=== PATIENT | female | born 1950 | race Caucasian/White ===

== ENCOUNTER 2016-08-02 08:32 | Inpatient (IN) | payer BC ==
[~2016-08-02] VITALS: Ht 160 cm; Wt 63.6 kg
[2016-08-02] MEDS ORDERED: SOD CHLORIDE 0.9% 1,000 ML IV STA (08:43)
[2016-08-02] MEDS ORDERED: ASPIRIN 325 MG TAB PO ONE (09:00)
[2016-08-02 09:05] LABS: ADD SCAN DIFF NO
--- NOTE | 2016-08-02 09:06 | RADRPT ---
PROCEDURE: XR Chest. CLINICAL INDICATION: Abdominal pain. TECHNIQUE: Single frontal portable chest was obtained. COMPARISON: None. FINDINGS: Cardiomediastinal silhouette appears normal There are atherosclerotic calcifications in the thoracic aorta. Pulmonary vasculature appears normal. Lung lovelace appear clear. There is a moderate sized retrocardiac hiatal hernia. Costophrenic angles are well defined. The osseous elements appear intact. IMPRESSION: 1. Atherosclerotic calcifications in the thoracic aorta. 2. Moderate retrocardiac hiatal hernia. 3. No confluent airspace process identified. RPTAT: [facility] Physician Oscar Date Time Electronically viewed and signed by Physician Oscar on 08/02/2016 09:06 /
[2016-08-02 09:08] LABS: ABNORMAL IP MESSAGE 1; HEMATOCRIT 22.2 % (37.0-47.0); MEAN CORPUSCULAR HEMOGLOBIN 16.9 pg (29.0-33.0); MEAN CORPUSCULAR HGB CONC 26.1 g/dl (32.0-37.0); MEAN CORPUSCULAR VOLUME 64.7 fl (82.0-101.0); MEAN PLATELET VOLUME 10.5 fl (7.4-10.4); PLATELET COUNT 446 10^3/UL (140-415); RED BLOOD COUNT 3.43 10^6/ul (4.20-5.40); RED CELL DISTRIBUTION WIDTH 20.7 % (11.5-14.5); WHITE BLOOD COUNT 3.3 10^3/ul (4.8-10.8)
[2016-08-02 09:11] LABS: HEMOGLOBIN 5.8 g/dl (12.0-16.0)
[2016-08-02 09:19] LABS: ALBUMIN 3.8 g/dl (3.3-4.9)
[2016-08-02 09:20] LABS: CHLORIDE 104 mmol/L (97-110); SODIUM 142 mmol/L (135-144)
[2016-08-02 09:22] LABS: ALBUMIN/GLOBULIN RATIO 1.31; ANION GAP 14 (8-16); ASPARTATE AMINO TRANSFERASE 26 IU/L (15-46); BILIRUBIN,INDIRECT 0.5 mg/dl (0-1.1); BILIRUBIN,TOTAL 0.5 mg/dl (0.2-1.3); CARBON DIOXIDE 28 mmol/L (21-31); CREATININE 0.63 mg/dl (0.44-1.00); TOTAL PROTEIN 6.7 g/dl (6.1-8.1)
[2016-08-02 09:23] LABS: ALANINE AMINOTRANSFERASE 28 IU/L (13-69); ALKALINE PHOSPHATASE 55 IU/L (42-121); BLOOD UREA NITROGEN 16 mg/dl (7-20); CALCIUM 8.9 mg/dl (8.4-10.2); GLUCOSE 86 mg/dl (70-220)
[2016-08-02 09:31] LABS: B-TYPE NATRIURETIC PEPTIDE 250 PG/ML (0-125)
[2016-08-02 09:34] LABS: TROPONIN-I < 0.012 ng/ml (0.00-0.12)
[2016-08-02 09:48] LABS: ADD UMIC NO; URINE BILIRUBIN (Dip) NEGATIVE (NEGATIVE); URINE BLOOD (Dip) NEGATIVE (NEGATIVE); URINE COLOR LT. YELLOW (YELLOW); URINE GLUCOSE (Dip) NEGATIVE (NEGATIVE); URINE KETONES (Dip) NEGATIVE (NEGATIVE); URINE LEUKOCYTE ESTERASE (Dip) NEGATIVE (NEGATIVE); URINE NITRITE (Dip) NEGATIVE (NEGATIVE); URINE TOTAL PROTEIN (Dip) NEGATIVE (NEGATIVE); URINE UROBILINOGEN (Dip) 0.2 E.U./dL (0.1-1.0)
[2016-08-02] MEDS ORDERED: OMEP10CA4 PO (09:50)
[2016-08-02] MEDS ORDERED: RANI-347 PO (09:51)
--- NOTE | 2016-08-02 10:15 | ERA ---
ER Documentation Chief Complaint Date/Time DATE: 08/02/16 TIME: 10:09 Chief Complaint SOB WITH EXERTION GETTING WORSE THE PAST FEW DAYS INTERMITENT CP HPI 66-year-old woman presents with 3-4 weeks of dyspnea on exertion and generalized weakness. She saw her stone driller helper today who referred her to this emergency department for evaluation and possible admission. Her stone driller helper stated her recent cardiac stress test was equivocal. Patient does have a history of gastritis and uses proton pump inhibitor therapy orally daily. She also uses aspirin 81 mg daily. Patient denies melena or blood per rectum, no epigastric abdominal pain, no fevers or chills, no vomiting or diarrhea. ROS All systems reviewed and are negative except as per history of present illness. Medications Home Meds Reported Medications Ranitidine Hcl* (Ranitidine Hcl*) 75 Mg Tablet, 75 MG PO QHS, #60 TAB 08/02/16 Omeprazole* (Omeprazole*) 10 Mg Capsule.dr, 10 MG PO DAILY, #30 CAP 08/02/16 Allergies Allergies: Coded Allergies: No Known Allergy (Unverified , 08/02/16) PMhx/Soc Gastritis Medical and Surgical Hx: pt denies Surgical Hx History of Surgery: No Anesthesia Reaction: No Hx Neurological Disorder: No Hx Respiratory Disorders: No Hx Cardiac Disorders: No Hx Alcohol Use: No Hx Substance Use: No Hx Tobacco Use: No Smoking Status: Never smoker FmHx Family History: No diabetes Physical Exam Vitals Vital Signs Date Time Temp Pulse Resp B/P Pulse Ox O2 Delivery O2 Flow Rate FiO2 08/02/16 09:05 59 18 147/71 100 Room Air 08/02/16 08:36 98.4 64 20 150/85 100 Physical Exam GENERAL: Well-developed, well-nourished, well-hydrated, in no apparent distress , looks nontoxic in appearance HEENT: Moist mucous membranes, pale conjunctiva, no cervical spine tenderness or step-off deformities, no goiter, no jaundice or icterus, extraocular movements intact without pain. No submandibular induration, and no pharyngeal erythema NEURO: Alert and oriented 3, cranial nerves II through XII intact bilaterally, pupils equal round reactive to light, no focal deficits or facial asymmetry, sensation intact distally Strength 5/5 in upper and lower extremities bilaterally CARDIAC: Bradycardic and regular no murmurs rubs or gallops LUNGS: Clear bilaterally no wheezing crackles or stridor ABDOMEN: Soft nontender, no guarding, no rigidity, no rebound, no psoas sign no obturator sign. Normoactive bowel sounds SKIN: Warm and dry to touch, no abrasions, contusions, or hematomas, no lacerations, no ecchymosis, no target lesions, and without ulcers EXTREMITIES: No clubbing cyanosis or edema, calves are bilaterally symmetrical, no Homans sign, no popliteal cord sign. Distal pulses equal and bilateral PSYCH: Normal affect without agitation or irritability Result Diagram: 08/02/16 0808/02/1655 Results 24 hrs Laboratory Tests Test 08/02/16 08:55 08/02/16 09:11 Alanine Aminotransferase (ALT/SGPT) 28IU/L Albumin 3.8g/dl Albumin/Globulin Ratio 1.31 Alkaline Phosphatase 55IU/L Anion Gap 14 Aspartate Amino Transf (AST/SGOT) 26IU/L B-Type Natriuretic Peptide 250PG/ML Blood Urea Nitrogen 16mg/dl Calcium Level 8.9mg/dl Carbon Dioxide Level 28mmol/L Chloride Level 104mmol/L Creatinine 0.63mg/dl Direct Bilirubin 0.00mg/dl Globulin 2.90g/dl Glucose Level 86mg/dl Hematocrit 22.2% Hemoglobin 5.8g/dl Indirect Bilirubin 0.5mg/dl Lipase 80U/L Mean Corpuscular Hemoglobin 16.9pg Mean Corpuscular Hemoglobin Concent 26.1g/dl Mean Corpuscular Volume 64.7fl Mean Platelet Volume 10.5fl Platelet Count 91055^3/UL Potassium Level 4.0mmol/L Red Blood Count 3.4310^6/ul Red Cell Distribution Width 20.7% Sodium Level 142mmol/L Total Bilirubin 0.5mg/dl Total Protein 6.7g/dl Troponin I < 0.012ng/ml White Blood Count 3.310^3/ul Urine Bilirubin NEGATIVE Urine Clarity CLEAR Urine Color LT. YELLOW Urine Glucose NEGATIVE% Urine Hemoglobin NEGATIVE Urine Ketones NEGATIVE Urine Leukocyte Esterase NEGATIVE Urine Nitrite NEGATIVE Urine Specific [place] <=1.005 Urine Total Protein NEGATIVE Urine Urobilinogen 0.2 E.U./dL Urine pH 6.5 Current Medications Medications (Trade) Dose Ordered Sig/[place]ingo Route PRN Reason Start Time Stop Time Status Last Admin Dose Admin Aspirin 325 mg 325 mg ONCE ONCE PO 08/02/16 09:00 08/02/16 09:01 DC 08/02/16 09:10 Sodium Chloride (NS) 1,000 ml @ 1,000 mls/hr Q1H STAT IV 08/02/16 08:43 08/02/16 09:42 DC 08/02/16 09:10 Procedures/MDM IV line was established patient was placed on manager code rhythm strip revealed a sinus rhythm at about 60 bpm with upright P and T waves. Patient was afebrile. Patient was given aspirin 324 mg for cardioprotective measures. EKG performed, read by me revealed a sinus bradycardia 53 bpm, normal axis, narrow QRS complex, no concerning ST elevations or depressions noted. Chest X-ray 1V Interpreted by me: Soft Tissue: No acute abnormalities Bones: No acute abnormalities Mediastinum/Cardiac Silhouette/Lungs: No acute abnormalities CBC revealed anemia with a hemoglobin of 5.8, electrolytes were unremarkable, liver function tests are normal, troponin was negative. I spoke to the patient at the bedside regarding her presentation and symptomatology, her symptoms are most likely attributed to severe anemia and indication is for IV PRBC transfusion. We spoke about the risks and benefits and after thinking about it the patient agreed. I obtain both verbal and written consent for IV transfusion. I ordered transfusion 2 units PRBCs IV over 4 hours. Critical Care: Time: 32 minutes, this was time separate from other procedures. Treatments/Evaluations: Close monitoring and treatment of unstable vital signs, cardiorespiratory, and neurologic status, while maintaining tight balance of fluid, respiratory, and cardiac interventions. Urine analysis was negative for infection. Patient will be admitted to Dr. Cho who saw the patient at the bedside. Departure Diagnosis: Primary Impression: Symptomatic anemia Additional Impression: Gastritis and gastroduodenitis with hemorrhage Condition: JUAN M Strickland MD Aug 02, 2016 10:14
[2016-08-02 10:31] VITALS: TEMP 98.3
[2016-08-02 11:00] VITALS: BP 138/71; PULSE 53; RESP 18; Ht 160 cm; Wt 63.6 kg
[2016-08-02 11:11] LABS: EOSINOPHILS # 0.3 10^3/ul (0.0-0.5); LYMPHOCYTES # 1.3 10^3/ul (0.8-2.9); MONOCYTE # 0.1 10^3/ul (0.3-0.9); NEUTROPHIL # 1.6 10^3/ul (1.6-7.5); OVALOCYTES 1+
[2016-08-02 11:23] LABS: ALBUMIN 3.9 g/dl (3.3-4.9)
[2016-08-02 11:25] LABS: IRON 12 ug/dl (35-150)
[2016-08-02 11:26] LABS: BILIRUBIN,INDIRECT 0.4 mg/dl (0-1.1); BILIRUBIN,TOTAL 0.4 mg/dl (0.2-1.3); TOTAL PROTEIN 6.5 g/dl (6.1-8.1)
[2016-08-02] MEDS ORDERED: ACETAMINOPHEN 325 MG TAB PO PRN (11:30)
[2016-08-02] MEDS ORDERED: ONDANSETRON 4 MG INJ IV PRN (11:30)
[2016-08-02 11:34] LABS: TOTAL IRON BINDING CAPACITY 487 ug/dl (241-421)
[2016-08-02] MEDS: PANTOPRAZOLE (EC) 40 MG TAB PO SCH ×2 (12:00→17:18)
--- NOTE | 2016-08-02 12:01 | HP ---
DATE OF ADMISSION: 08/02/2016 CHIEF COMPLAINT: Shortness of breath. HISTORY OF PRESENT ILLNESS: This is a 66-year-old female with a past medical history of erosive gas tritis, history of hiatal hernia, who presents to [facility] with complaints of sh ortness of breath ongoing for the last 3 to 4 weeks. The patient's symptoms began approximately 3 t o 4 weeks ago when she noted worsening dyspnea on exertion. The patient also had some episodes of i ntermittent chest pain. As a result, her product safety expert brought her to [facility] f or evaluation. Upon arrival, the patient had laboratory data drawn, which showed hemoglobin of 5.8. The patient in the emergency room was given 1 liter of fluid and aspirin 325 x1. The patient was typed and crossed 2 units of PRBC for transfusion. In terms of the patient's GI history she stated that she was diagnosed with erosive esophagitis appr oximately 10 years ago. The patient has been on PPI. She denies any recent episodes of hemoptysis, hematemesis, any hematochezia. She denies any melenic stools. Patient has not had any recent repea t EGD or colonoscopy in the last 10 years. Otherwise, the patient denies any rashes, any dysuria or any frothy urine. PAST MEDICAL HISTORY: History of erosive esophagitis. PAST SURGICAL HISTORY: EGD, colonoscopy in the past. ALLERGIES: NO KNOWN DRUG ALLERGIES. FAMILY HISTORY: Noncontributory. SOCIAL HISTORY: Does not drink, smoke or do drugs. MEDICATIONS: Patient medications have been reviewed. REVIEW OF SYSTEMS: A 14-point review of systems was conducted. Pertinent positives stated in HPI, otherwise negative. PHYSICAL EXAMINATION: VITAL SIGNS: Blood pressure is 153/71, respiration 17, pulse 59, temperature 98.3. HEENT: Head is normocephalic. NECK: Supple. HEART: Regular rate. LUNGS: Show diminished breath sounds at the base. ABDOMEN: Soft, nontender to palpation without rebound or guarding. EXTREMITIES: Negative for clubbing, cyanosis, no edema. DERMATOLOGIC: No rashes. MUSCULOSKELETAL: No joint effusions. NEUROLOGIC: No focal deficits. LABORATORY DATA: Shows white count 3.3, hemoglobin 5.8, hematocrit 22.2, MCV 64.7, platelet count 4 46. BMP within normal limits. BNP 250. Urinalysis is bland. Chest x-ray shows a moderate retroca rdiac hiatal hernia, no airspace disease noted. ASSESSMENT AND PLAN: 1. Severe anemia. Underlying etiology is unclear. Differential is broad including peptic ulcer di sease versus hiatal hernia versus possible lower gastrointestinal bleed versus other. Plan at this point is to type and cross 2 units of PRBC. We will check iron panel, stool for occult blood. A GI consultation has been placed with Dr. Sorensen for evaluation for possible EGD, colonoscopy. We jeff l continue to monitor H and H levels closely. The patient will also be started on Protonix 40 mg p.o . daily. 2. Shortness of breath. Etiology is like secondary to severe anemia. Low suspicion for any acute cardiac issues. We will transfuse 2 units of PRBC and monitor. 3. Mild leukopenia, etiology is unclear. We will continue to monitor and may consider hematologic evaluation. 4. Thrombocytosis, etiology reactive, likely secondary to underlying anemia. Continue to monitor. 5. Gastrointestinal and deep venous thrombosis prophylaxis. Continue proton pump inhibitor and seq uential leg squeezers. 6. Hypertension, mild. We will continue to monitor. Defer any blood pressure medications at this time. Please note I spent over 25 minutes of face to face time with the patient, discussing code status. The patient is FULL CODE. Dictated By: DIMPLE MATTHEW/PAUL Conf#: [id number] DID#: [id number]
[2016-08-02] MEDS ORDERED: BISACODYL (EC) 5 MG TAB PO ONE ×3 (17:00→22:00)
--- NOTE | 2016-08-02 17:19 | CONS ---
DATE OF ADMISSION: 08/02/2016 DATE OF CONSULTATION: 08/02/2016 TYPE OF CONSULTATION: Gastroenterology. REFERRING PHYSICIAN: DIMPLE CHO DO. REASON FOR CONSULTATION: Severe microcytic hypochromic anemia, symptomatic. Dear Dr. Cho: Thank you for asking me to evaluate your patient who is a pleasant 66-year-old female with a history of erosive esophagitis, admitted to the hospital for symptomatic anemia. The patient was experienc ing shortness of breath for the last 3 to 4 weeks and this was only upon exertion. She denies any n ausea, vomiting, no abdominal pain, no GI bleeding. Patient had a colonoscopy done more than 10 yea rs ago. Two polyps were removed. She also had EGD done and she was diagnosed to have erosive esoph agitis. She denies of any chest pain now. She feels comfortable after having had a blood transfusi on. 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 The patient is in a menopausal state. PAST MEDICAL HISTORY: Esophagitis. ALLERGIES: NO KNOWN DRUG ALLERGIES. FAMILY HISTORY: Noncontributory. SOCIAL HISTORY: Does not smoke or drink or take drugs. The patient is a teacher by profession. MEDICATIONS: She has been taking baby aspirin for the last 2 to 3 weeks. REVIEW OF SYSTEMS: Otherwise negative: Alert, awake, not in distress. VITAL SIGNS: Stable. HEENT: Unremarkable. NECK: Supple, no thyromegaly, no lymphadenopathy. CARDIOVASCULAR: No murmur, gallop or click. ABDOMEN: Benign. EXTREMITIES: No edema. CENTRAL NERVOUS SYSTEM: Grossly within normal limits. SKIN: Normal. LABORATORY DATA: WBC is 3.3, hematocrit is 22, microcytic hypochromic picture. The MCV is 64 and M CHC is low. Platelet count was 446, most probably secondary to iron deficiency anemia. Liver funct ions were normal. Troponin was within normal limits. IMPRESSION: 1. Severe iron deficiency anemia secondary to gastrointestinal blood loss. 2. Mild hypertension. 3. Symptomatic anemia. 4. Shortness of breath which was secondary to anemia. 5. Personal history of colon polyp removed more than 10 years ago. 6. History of erosive esophagitis and hiatal hernia. PLAN: At this point is to prepare the patient for esophagogastroduodenoscopy and colonoscopy. Pena sfuse patient on an as need basis. Continue proton pump inhibitor and we will monitor hemoglobin an d hematocrit closely. Dictated By: JAROD SANCHEZ/PAUL Conf#: [id number] DID#: [id number] CC: DIMPLE CHO DO;*EndCC*
[2016-08-02] MEDS ORDERED: PEG/ELECTROLYTES 4L BTL PO ONE ×2 (18:00→22:00)
[2016-08-02 20:06] VITALS: BP 142/66; RESP 16
[2016-08-03] VITALS (9 sets, daily range): BP systolic 90–140; BP diastolic 47–81; PULSE 12–69; RESP 13–42
[2016-08-03] MEDS: PANTOPRAZOLE (EC) 40 MG TAB PO SCH ×2 (05:42→17:34)
[2016-08-03 07:54] LABS: ADD SCAN DIFF NO
[2016-08-03 07:57] LABS: ABNORMAL IP MESSAGE 1; BASOPHILS % 0.5 % (0.0-2.0); EOSINOPHILS # 0.1 10^3/ul (0.0-0.5); EOSINOPHILS % 3.2 % (0.0-7.0); HEMATOCRIT 28.4 % (37.0-47.0); HEMOGLOBIN 8.2 g/dl (12.0-16.0); LYMPHOCYTES # 1.5 10^3/ul (0.8-2.9); MEAN CORPUSCULAR HGB CONC 28.9 g/dl (32.0-37.0); MEAN CORPUSCULAR VOLUME 69.3 fl (82.0-101.0); MEAN PLATELET VOLUME 11.2 fl (7.4-10.4); MONOCYTE # 0.5 10^3/ul (0.3-0.9); MONOCYTES % 11.1 % (0.0-11.0); NEUTROPHIL # 1.9 10^3/ul (1.6-7.5); PLATELET COUNT 423 10^3/UL (140-415); RED CELL DISTRIBUTION WIDTH 23.9 % (11.5-14.5); WHITE BLOOD COUNT 4.1 10^3/ul (4.8-10.8)
[2016-08-03 08:32] LABS: POTASSIUM 3.7 mmol/L (3.5-5.1)
[2016-08-03 08:35] LABS: CREATININE 0.58 mg/dl (0.44-1.00); PHOSPHORUS 3.5 mg/dl (2.5-4.9)
[2016-08-03 08:36] LABS: CALCIUM 8.9 mg/dl (8.4-10.2); MAGNESIUM 2.1 mg/dl (1.7-2.5)
--- NOTE | 2016-08-03 09:22 | PN ---
DATE: SUBJECTIVE: The patient is stable, no acute events overnight. No fevers, chills, nausea, vomiting. The patient received 2 units of PRBC. The patient is scheduled for EGD, colonoscopy this morning. No other events noted. OBJECTIVE: VITAL SIGNS: Blood pressure 140/65, respirations 20, pulse 59, temperature 98.0. HEENT: Head is normocephalic. Pupils are reactive to light. NECK: Supple. HEART: Regular rate. LUNGS: Show diminished breath sounds at the base. ABDOMEN: Soft, nontender to palpation. No rebound or guarding. EXTREMITIES: Negative for clubbing, cyanosis. No edema. DERMATOLOGIC: No rashes. MUSCULOSKELETAL: No joint effusions. NEUROLOGIC: No change in exam. MEDICATIONS: The patient's medications have been reviewed. LABORATORY DATA: Currently pending. The patient's iron panel shows a saturation of 2, ferritin of 3.9. ASSESSMENT AND PLAN: 1. Severe iron deficiency anemia, etiology is concerning for a possible bleed, GI is likely as the source. Possibilities include peptic ulcer disease versus a hiatal hernia versus lower gastrointest inal bleed. The patient is status post 2 units of PRBCs. Tolerated it well. Plan is for patient t o undergo EGD, colonoscopy this morning. We will follow up with GI for further recommendations. We will continue the patient on Protonix 40 mg b.i.d. and will transfuse PRBCs as needed. 2. Shortness of breath secondary to severe anemia. The patient is clinically improved after blood transfusion. Continue to monitor. 3. Mild leukopenia. Continue to observe. 4. Thrombocytosis, likely reactive secondary to anemia. Continue to monitor. 5. Mild hypertension. Continue to monitor and defer blood pressure medications at this time. 6. Gastrointestinal and deep venous thrombosis prophylaxis. Continue proton pump inhibitor and seq uential leg squeezers. Dictated By: DIMPLE MATTHEW/PAUL Conf#: [id number] DID#: [id number]
[2016-08-03] MEDS ORDERED: LIDOCAINE 2% (SDV) 5 ML INJ ONE (11:36)
[2016-08-03] MEDS ORDERED: PROPOFOL 40 ML ONE (11:36)
--- NOTE | 2016-08-03 12:32 | GILP ---
DATE OF PROCEDURE: 08/03/2016 PROCEDURE: EGD with biopsy and colonoscopy. INDICATION: A 66-year-old female admitted to the hospital for severe iron deficiency anemia requiri ng blood transfusion. The risk of the procedure, related and unrelated complications, anesthetic ri sks, alternatives discussed and informed consent was obtained. DESCRIPTION OF PROCEDURE: The patient was brought to the GI lab, sedated by Dr. Spivey. After obtain ing sedation, scope was passed with much ease into the esophagus. She had a 6 cm hiatal hernia. Sc ope was advanced further down into stomach. Gastritis identified. Advanced further down into duode num. Ampulla was identified which was normal. Two biopsies obtained from the second and third part to rule out celiac sprue. Bulb was within normal limits. Retroversion done, hiatal hernia confirm ed. Scope was straightened out. Z line thoroughly inspected which was at 30 cm. The rest of the e sophagus was normal. The scope was removed with excellent patient tolerance. IMPRESSION: 1. A 6 cm hiatal hernia. 2. Z line at 30 cm which was regular and normal. 3. Gastritis. 4. Normal duodenum and ampulla. 5. Duodenal biopsy to rule out celiac sprue. PLAN: Review histopathology. COLONOSCOPY REPORT: She was turned around. Digital examination done which was normal. Scope was p assed with much ease into rectum and advanced slowly through a redundant colon all the way into cecu m and finally into terminal ileum. Terminal ileum up to 2 feet was normal. Normal villous pattern. The appendiceal orifice was normal. Rest of the colon appeared normal. Retroversion done in the r ectum and hemorrhoids identified. Scope was straightened out and on antegrade examination, also mod erate size hemorrhoids were seen. IMPRESSION 1. Hemorrhoids. 2. Normal colon all the way up to appendix. 3. Preparation was good to adequate. 4. Normal terminal ileum. PLAN: This finding cannot explain the iron deficiency anemia of this magnitude. Patient definitely needs a capsule endoscopy, which can be done in my office as an outpatient. Dictated By: JAROD SANCHEZ/PUAL Conf#: [id number] DID#: [id number] CC: DIMPLE TAVARES DO;*EndCC*
--- NOTE | 2016-08-04 10:34 | DS ---
DATE OF ADMISSION: 08/02/2016 DATE OF DISCHARGE: 08/03/2016 HOSPITAL COURSE: This is a 66-year-old female with a past medical history of erosive esophagitis, h istory of hiatal hernia, presented to [facility] with shortness of breath for 3 to 4 weeks. The patient on admission was noted to be anemic with a hemoglobin level 5.8. In the [facility] room, the patient was typed and crossed two units PRBC, admitted to med/surg for evaluation. In terms of patient's severe anemia the patient was evaluated by Dr. Serrano and esophagogastroduoden oscopy and colonoscopy was performed which showed evidence of gastritis but no active evidence of bl eeding. Per Dr. Serrano the possibility of a small bowel bleed is a consideration and recommendation was made for capsule study to be done as outpatient setting. The patient did receive 2 units of [place] BC with appropriate hemoglobin response from 5.8 to 8 g/dL. The patient's clinical symptoms improve d. Patient had an iron panel which did show evidence of severe iron deficiency anemia. At this poi nt, the patient will be given ferrous sulfate 325 mg t.i.d. to be taking in outpatient setting. The patient will follow up with Dr. Serrano as outpatient setting for capsule study. The patient will b e discharged home and will also follow up with her primary care physician in 1 weeks' time for a lab check. At time of discharge, the patient is stable, in no acute distress. FINAL DIAGNOSES: 1. Severe anemia. Etiology is unclear, possible small bowel bleed. The patient will have a capsul e study performed in outpatient setting. Esophagogastroduodenoscopy and colonoscopy showed no acute findings. 2. Shortness of breath secondary to severe anemia resolved. 3. Mild leukopenia. We will continue to monitor. 4. Thrombocytosis, likely reactive. 5. Mild hypertension. FINAL MEDICATIONS: Patient will be on: 1. Ferrous sulfate 325 t.i.d. 2. Will continue on omeprazole. 3. Ranitidine. Please note I spent over 40 minutes of time preparing the patient's discharge. Dictated By: DIMPLE TAVARES DO NR/NTS Conf#: [id number] DID#: [id number]
== END 2016-08-03 20:50 | disposition home or self-care (01) | DRG 812 ==
LOC: E/R 08:32 → MS2 09:46
PROVIDERS: ADMIT Internal Medicine; ATTEND Internal Medicine
PROC: 30233N1 Transfusion of Nonautologous Red Blood Cells into Peripheral Vein, Percutaneous Approach (ICD-10-PCS; 2016-08-02)
PROC: 0DB68ZX Excision of Stomach, Via Natural or Artificial Opening Endoscopic, Diagnostic (ICD-10-PCS; principal; 2016-08-03 11:00)
PROC: 0DJD8ZZ Inspection of Lower Intestinal Tract, Via Natural or Artificial Opening Endoscopic (ICD-10-PCS; 2016-08-03 11:00)
DX: D50.9 Iron deficiency anemia, unspecified (principal); D69.6 Thrombocytopenia, unspecified; K64.9 Unspecified hemorrhoids; K29.70 Gastritis, unspecified, without bleeding; K44.9 Diaphragmatic hernia without obstruction or gangrene; K21.9 Gastro-esophageal reflux disease without esophagitis; I10 Essential (primary) hypertension; D47.3 Essential (hemorrhagic) thrombocythemia; D72.819 Decreased white blood cell count, unspecified; R06.02 Shortness of breath; J45.909 Unspecified asthma, uncomplicated
CPT/HCPCS: 36415; 36430; 71010; 80048; 80053; 80076; 81003; 82270; 82728; 83540; 83690; 83735; 83880; 84100; 84484; 85025; 86644; 86850; 86900; 86901; 86920; 93005; 96360; J7030; P9016